=== PATIENT | female | born 1995 | race American Indian/Alaskan Native ===

== ENCOUNTER 2019-11-07 10:34 | Emergency (ER) | payer OTHER, SELFPAY ==
[2019-11-07 10:44] VITALS: BP 140/88; PULSE 77; RESP 13; TEMP 36.4; O2SAT 99
--- NOTE | 2019-11-07 11:13 | ED.EAR ---
HPI - Ear Problem General Chief complaint: Ear Stated complaint: right ear pain/stuffed x 3 days Time Seen by Provider: 11/07/19 11:13 Source: patient Mode of arrival: Ambulatory Limitations: no limitations History of Present Illness HPI Narrative: This is a pleasant 24-year-old female comes to the emergency department with complaint of right ear pain. Patient states that it has felt stuffed and become more painful over the last 3 days. She states when she is up and moving around actually does not feel full seems like it opens up. But during the night time and when she 1st wakes up it does. She has not had any fevers. She does not have any pain on the left side. She has not had any nasal congestion or other upper respiratory symptoms. Patient states she has had similar symptoms in the past but never had an ear infection requiring antibiotics. She does occasionally use Q-tips. She denies any other medical issues. She denies any allergies to medications. Review of Systems Review of Systems ROS Unobtainable: All systems reviewed & are unremarkable except as noted in HPI and below Patient History Social History Smoking Status: Never smoker Smoking Status: Never smoker alcohol intake frequency: 0-2 drinks per day Substance Use Type: does not use Exam Narrative Exam Narrative: GEN: well nourished, well appearing female, alert and oriented x 3, patient appears to be in mild distress. HEENT: Atraumatic, pupils are equal round reactive to light, extraocular movements are intact, nares are clear, external ears are normal, TM on right has cerumen impaction on right, unable to visualize TM, no erythema or changes noted in the canal visualized, left TM has mild cerumen, Throat is clear without any exudates, erythema, tonsillar enlargement or uvular deviation MSCL: full range of motion, normal gait NEURO:CN 2-12 intact, sensation normal Initial Vital Signs Initial Vital Signs: Vital Signs Temperature 97.5 F L 11/07/19 10:44 Pulse Rate 77 11/07/19 10:44 Respiratory Rate 13 11/07/19 10:44 Blood Pressure 140/88 11/07/19 10:44 Pulse Oximetry 99 11/07/19 10:44 Course Orders Ordered: Discontinued Medications Carbamide Peroxide (Debrox) 4 drops EAR-RIGHT NOW ONE Stop: 11/07/19 11:19 Last Admin: 11/07/19 11:35 Dose: 4 drops Documented by: ELVIS Vital Signs Vital signs: Vital Signs - 8 hr 11/07/19 10:44 Temperature 97.5 F L Pulse Rate 77 Respiratory Rate 13 Blood Pressure 140/88 Pulse Oximetry 99 Medical Decision Making MDM Narrative Medical decision making narrative: Recheck after debrox and irrigation, able to visualize TM there is no erythema, patient has good light reflex with no bulge. Canal is clear without any erythema or other changes of infection. Discharge Plan Departure Patient Disposition: Home Clinical Impression: Cerumen impaction Qualifiers: Laterality: right Qualified Code(s): H61.21 - Impacted cerumen, right ear Discharge Date/Time: 11/07/19 12:24 Instructions: Cerumen Impaction Activity Restrictions/Additional Instructions: You have a buildup of earwax in your right ear. If you have a recurrence you may use 3-4 drops of debrox ear drops into the affected ear, allowed to sit for 5-10 minutes and then irrigate with warm saline in a suction bulb until relief. If you have minimal improvement you may repeat once daily. If you develop fevers, increasing pain, bloody drainage or other new or concerning symptoms such as swelling of the face, neck or decreased hearing return to the emergency department.
[2019-11-07] MEDS: CARBAMIDE PEROXIDE OTIC 15 ML 4 DROPS EAR-RIGHT (11:35)
== END 2019-11-07 12:24 | disposition home or self-care (01) ==
PROVIDERS: Emergency Provider Emergency Medicine
DX: H61.21 Impacted cerumen, right ear (principal)
CPT/HCPCS: 69209; 99283; 99284